=== PATIENT | female | born 1940 | race Caucasian/White ===

== ENCOUNTER 2017-07-05 16:47 | Emergency (ER) | payer OTHER ==
[~2017-07-05 16:47] MED LIST: ALBU0.63 IH; CHOL200013 PO; FERR-82 PO; MONT10TA24 PO
[2017-07-05] MEDS ORDERED: IPRATROPIUM/ALBUTEROL SULFATE 3 ML SOLUTION IH ONE (16:59)
[2017-07-05] MEDS ORDERED: ASPIRIN 325 MG TABLET ONE (17:31)
[2017-07-05] MEDS ORDERED: ASPIRIN 81MG TAB.CHEW ONE (17:34)
[2017-07-05 17:38] LABS: BASOPHILS % (AUTO) 0.7 % (0.0-5.0); EOSINOPHILS % (AUTO) 1.1 % (0.0-8.0); HEMATOCRIT 39.4 % (36-48); LYMPHOCYTES % (AUTO) 22.7 % (21.0-51.0); MEAN CORPUSCULAR HEMOGLOBIN 30.4 pg (27.0-33.0); MEAN CORPUSCULAR HGB CONC 33.7 g/dL (32.0-36.0); MEAN CORPUSCULAR VOLUME 90.2 fL (79-99); MONOCYTES % (AUTO) 6.9 % (3.0-13.0); NEUTROPHILS % (AUTO) 68.6 % (40.0-77.0); PLATELET COUNT (AUTO) 290 K/uL (130-400); RED BLOOD CELL COUNT(AUTO) 4.37 MIL/uL (4.00-5.50); RED CELL DISTRIBUTION WIDTH 15.7 % (11.0-15.5); WHITE BLOOD COUNT (AUTO) 8.8 K/uL (4.8-10.8)
[2017-07-05 17:48] LABS: CREATININE 0.8 mg/dL (0.5-1.5)
[2017-07-05 17:51] LABS: INR 0.96 (0.85-1.15); PARTIAL THROMBOPLASTIN TIME 24.7 SEC (26.3-35.5); PROTHROMBIN TIME 10.1 SEC (9.6-11.6)
[2017-07-05 18:01] LABS: ALBUMIN 4.1 g/dL (3.5-5.0); BILIRUBIN,TOTAL 0.5 mg/dL (0.2-1.0); CREATINE KINASE MB 5.5 ng/mL (0.5-3.6); TOTAL PROTEIN, SERUM 7.6 g/dL (6.0-8.3)
[2017-07-05] MEDS ORDERED: METHYLPREDNISOLONE SOD SUCC 125MG/2ML VIAL ONE (18:08)
[2017-07-05] MEDS ORDERED: LEVOFLOXACIN 500 MG/D5W 100 ML 100 ML ONE (18:08)
[2017-07-05] MEDS ORDERED: ACETYLCYSTEINE 20% 200MG/ML 4ML VIAL ONE (18:26)
[2017-07-05] MEDS ORDERED: ALBUTEROL SULFATE 0.083% 2.5 MG/3 ML INH IH ONE (18:26)
== END 2017-07-05 20:10 | disposition home or self-care (01) ==
LOC: EDH 16:47
DX: J45.901 Unspecified asthma with (acute) exacerbation (principal); Z88.0 Allergy status to penicillin
CPT/HCPCS: 36415; 71045; 80053; 82550; 82553; 83874; 84484; 85025; 85610; 85730; 93005; 94640 ×2; 94761; 96365; 96366; 96375; 99285; J1956; J2930; J7608